=== PATIENT | male | born 1980 | race Two or more races ===

== ENCOUNTER 2022-06-14 18:28 | Emergency (ER) | payer OTHER ==
[~2022-06-14] VITALS: Ht 188 cm; Wt 96.4 kg
[2022-06-14 23:04] LABS: BASOPHILS % (AUTO) 0.3 % (0.0-2.0); EOSINOPHILS % (AUTO) 0.9 % (1.0-6.0); HEMATOCRIT 44.3 % (41-53); HEMOGLOBIN 14.7 g/dL (13.5-17.5); LYMPHOCYTES # (AUTO) 1.6 K/uL (1.0-4.8); LYMPHOCYTES % (AUTO) 27.5 % (22.0-44.0); MEAN CORPUSCULAR HEMOGLOBIN 29.8 pg (26.0-34.0); MEAN CORPUSCULAR HGB CONC 33.1 G/dL (31.0-37.0); MEAN CORPUSCULAR VOLUME 90 fL (80-100); MONOCYTES # (AUTO) 0.3 K/uL (0.1-1.0); MONOCYTES % (AUTO) 4.5 % (2.0-9.0); NEUTROPHILS # (AUTO) 3.9 K/uL (1.8-7.7); NEUTROPHILS % (AUTO) 66.8 % (40.0-70.0); PLATELET COUNT (AUTO) 205 K/uL (150-450); RED BLOOD CELL COUNT(AUTO) 4.92 MIL/uL (4.50-5.90); RED CELL DISTRIBUTION WIDTH 13.2 % (11.5-14.5)
[2022-06-14 23:08] LABS: ANION GAP 6 mmol/L (8-16); CALCIUM, TOTAL 8.7 mg/dL (8.8-10.5); CARBON DIOXIDE 33 mmol/L (22-29); CHLORIDE 103 mmol/L (98-107); CREATININE 1.12 mg/dL (0.60-1.30); GLOMERULAR FILTR. RATE CALC > 60 mL/min (>60); GLUCOSE,RANDOM 102 mg/dL (70-110); SODIUM SERUM 142 mmol/L (136-145); UREA NITROGEN, BLOOD 21 mg/dL (7-18)
[2022-06-14 23:09] LABS: COVID AG,FIA SOURCE NASAL SWAB
[2022-06-14 23:14] LABS: ALANINE AMINOTRANSFERASE 16 U/L (12-78); ALBUMIN 4.4 g/dL (3.4-5.0); ALKALINE PHOSPHATASE 65 U/L (46-116); ASPARTATE AMINOTRANSFERASE 19 U/L (15-37); BILIRUBIN,TOTAL 0.6 mg/dL (0.1-1.0); TOTAL PROTEIN, SERUM 7.9 g/dL (6.4-8.2)
[2022-06-14 23:29] LABS: B-TYPE NATRIURETIC PEPTIDE 21 pg/mL (0-100)
[2022-06-14] MEDS ORDERED: KETOROLAC TROMETHAMINE 30 MG/ML VIAL IM ONE (23:45)
[2022-06-15] VITALS: BP 141/76
== END 2022-06-15 00:36 ==
LOC: EMS 18:31
DX: R07.89 Other chest pain (principal); F14.90 Cocaine use, unspecified, uncomplicated; Z20.822 Contact with and (suspected) exposure to COVID-19
CPT/HCPCS: 99285; 71045; 87426; 80053; 83880; 84484; 85025; 36415; 93005; 96372; J1885

== ENCOUNTER 2022-07-18 15:34 | Emergency (ER) | payer MEDICAID, OTHER ==
[~2022-07-18] VITALS: Ht 188 cm; Wt 96.4 kg
[2022-07-18] MEDS ORDERED: NALO4SPR NASAL (17:22)
[2022-07-18 17:33] LABS: AMPHET/METH SCREEN,URINE POSITIVE (NEGATIVE); BARBITURATE SCREEN, URINE NEGATIVE (NEGATIVE); BENZODIAZEPINES SCREEN,URINE NEGATIVE (NEGATIVE); CANNABINOID SCREEN,URINE NEGATIVE (NEGATIVE); COCAINE SCREEN,URINE NEGATIVE (NEGATIVE); METHADONE SCREEN, URINE NEGATIVE (NEGATIVE); OPIATE SCREEN,URINE NEGATIVE (NEGATIVE); PHENCYCLIDINE SCREEN,URINE NEGATIVE (NEGATIVE)
[2022-07-18 18:12] VITALS: BP 128/78
== END 2022-07-18 18:35 | disposition left against medical advice (07) ==
LOC: EMS 15:34
DX: T37.8X1A Poisoning by other specified systemic anti-infectives and antiparasitics, accidental (unintentional), initial encounter (principal); R40.4 Transient alteration of awareness; Y92.89 Other specified places as the place of occurrence of the external cause
CPT/HCPCS: 80307; 99284

== ENCOUNTER 2022-11-09 09:04 | Emergency (ER) | payer MEDICAID, OTHER ==
[~2022-11-09] VITALS: Ht 188 cm; Wt 93.2 kg
[~2022-11-09 09:04] MED LIST: NALO4SPR NASAL
[2022-11-09 09:16] VITALS: TEMP 98.6
[2022-11-09] MEDS ORDERED: CEPH-558 PO (12:39)
[2022-11-09] MEDS ORDERED: SULF-261 PO (12:40)
[2022-11-09 13:30] VITALS: BP 133/68; PULSE 95; RESP 18
== END 2022-11-09 14:03 | disposition home or self-care (01) ==
LOC: EMS 09:08
DX: L03.113 Cellulitis of right upper limb (principal); F15.90 Other stimulant use, unspecified, uncomplicated; F14.90 Cocaine use, unspecified, uncomplicated
CPT/HCPCS: 99283; Z7502

== ENCOUNTER 2022-11-10 20:41 | Emergency (ER) | payer OTHER ==
[~2022-11-10] VITALS: Ht 188 cm; Wt 89.3 kg
[~2022-11-10 20:41] MED LIST changes: +CEPH-558 PO; +SULF-261 PO
[2022-11-11] VITALS: BP 133/81; PULSE 71; RESP 16; TEMP 97.3
[2022-11-11] MEDS ORDERED: CefTRIAXone SODIUM 1 GM/VIAL IM ONE
[2022-11-11] MEDS ORDERED: LIDOCAINE/PF 1% 2 ML VIAL IM ONE
== END 2022-11-11 00:30 | disposition home or self-care (01) ==
LOC: EMS 20:43
DX: L02.413 Cutaneous abscess of right upper limb (principal); L03.312 Cellulitis of back [any part except buttock and flank]; F17.210 Nicotine dependence, cigarettes, uncomplicated; F15.90 Other stimulant use, unspecified, uncomplicated
CPT/HCPCS: 99283; 87205; 96372; 87070; J0696; J3490; 87186

== ENCOUNTER 2022-11-12 09:06 | Emergency (ER) | payer OTHER ==
[~2022-11-12] VITALS: Ht 190.5 cm; Wt 89.5 kg
[2022-11-12 09:12] VITALS: BP 121/72; PULSE 81; RESP 16; TEMP 98.3
== END 2022-11-12 10:49 | disposition left against medical advice (07) ==
LOC: EMS 09:07
DX: Z53.21 Procedure and treatment not carried out due to patient leaving prior to being seen by health care provider (principal)
CPT/HCPCS: 99281; Z7502

== ENCOUNTER 2023-12-09 03:45 | Emergency (ER) | payer OTHER ==
[~2023-12-09 03:45] MED LIST changes: -NALO4SPR NASAL
== END 2023-12-09 04:32 | disposition left against medical advice (07) ==
LOC: EMS 03:45
DX: Z53.21 Procedure and treatment not carried out due to patient leaving prior to being seen by health care provider (principal)

== ENCOUNTER 2024-02-17 02:32 | Emergency (ER) | payer OTHER ==
[~2024-02-17] VITALS: Ht 188 cm; Wt 95.5 kg
[2024-02-17 02:40] VITALS: BP 150/73; PULSE 97; RESP 19; TEMP 98.3; O2SAT 100
[2024-02-17 03:05] LABS: COVID AG,FIA SOURCE NASAL SWAB
[2024-02-17] MEDS ORDERED: ACET-3385 PO (03:39)
[2024-02-17] MEDS ORDERED: IBUP-1492 PO (03:39)
[2024-02-17] MEDS: ACETAMINOPHEN 500 MG TABLET PO ONE (03:45)
[2024-02-17] MEDS: IBUPROFEN 600 MG TABLET PO ONE (03:45)
[2024-02-17 04:01] LABS: INFLUENZA TYPE A NEGATIVE FOR TYPE A (NEGATIVE); INFLUENZA TYPE B NEGATIVE FOR TYPE B (NEGATIVE); SARS-COV2 (COVID) ANTIGEN,FIA Negative (Negative)
[2024-02-17 04:12] LABS: RAPID GROUP A STREP NEGATIVE (NEGATIVE)
== END 2024-02-17 04:28 | disposition home or self-care (01) ==
LOC: EMS 02:32
DX: B34.9 Viral infection, unspecified (principal); F17.210 Nicotine dependence, cigarettes, uncomplicated; F15.90 Other stimulant use, unspecified, uncomplicated; Z20.822 Contact with and (suspected) exposure to COVID-19
CPT/HCPCS: 87430; 87804; 99283